=== PATIENT | male | born 1955 | race Caucasian/White ===

== ENCOUNTER 2016-08-01 16:23 | Outpatient (CLI) | payer OTHER ==
--- NOTE | 2016-08-01 16:53 | DIAGNOSTIC IMAGING REPORT ---
PROCEDURE: XR LUMBAR SPINE 2 OR 3 VIEWS INDICATION: BACK PX TECHNIQUE: Three views. COMPARISON: None. FINDINGS: Grade 2 spondylolisthesis at L5-S1 with pars defects. There is also spondylosis at L4-5. IMPRESSION: 1. L5-S1 spondylolisthesis and pars defects.
== END 2016-08-01 23:00 ==
LOC: XR SRH 16:23
DX: M43.17 Spondylolisthesis, lumbosacral region (principal)